=== PATIENT | male | born 1990 | race Native Hawaiian/Other Pacific Islander ===

== ENCOUNTER 2017-05-18 05:00 | Emergency (ER) | payer BC ==
[2017-05-18 05:13] VITALS: RESP 16; TEMP 97.4
--- NOTE | 2017-05-18 06:40 | CT ---
EXAM: CT Head Without Intravenous Contrast CLINICAL HISTORY: 26 years old, male; Injury or trauma; Fall; Initial encounter; Blunt trauma (contusions or hematomas); Additional info: Head injury TECHNIQUE: Axial computed tomography images of the head/brain without intravenous contrast. All CT scans at this facility use one or more dose reduction techniques, viz.: automated exposure control; ma/kV adjustment per patient size (including targeted exams where dose is matched to indication; i.e. head); or iterative reconstruction technique. 321 images are submitted. Coronal and sagittal reformatted images were created and reviewed. Axial reformatted images were created and reviewed. COMPARISON: No relevant prior studies available. FINDINGS: Brain: Unremarkable. No hemorrhage. No significant white matter disease. No edema. Ventricles: Unremarkable. No ventriculomegaly. Bones/joints: Unremarkable. No acute fracture. Soft tissues: Right frontal soft tissue swelling. Sinuses: There is near complete opacification of frontal sinuses. Severe right ethmoid sinus disease. Patchy left ethmoid sinus disease. Scattered patchy sinus disease. Mastoid air cells: Unremarkable. No mastoid effusion. Orbits: The globe and lens are intact. Other findings: Right frontal radiopaque density representing calcification versus debris. IMPRESSION: 1. No evidence of an acute intracranial hemorrhage, midline shift or mass effect is identified. 2. Right frontal soft tissue swelling.
--- NOTE | 2017-05-18 06:57 | ED PDOC ---
HPI: Psych/Substance Abuse Time Seen by Provider: 05/18/17 05:22 Chief Complaint (Nursing): Alcohol Ingestion Chief Complaint (Provider): alcohol intoxication History Per: Patient History/Exam Limitations: intoxication Onset/Duration Of Symptoms: Days (05/18/17) Current Symptoms Are (Timing): Still Present Suicide/Self Injury Attempted (Context): None Modifying Factor(s): Alcohol Additional Complaint(s): 26 year old male was brought into the ED for alcohol intoxication. Reports of drinking and head injury. Denies any other medical condition in ED currently. PMD: Provider TBD Past Medical History Reviewed: Historical Data, Nursing Documentation, Vital Signs Vital Signs: Last Vital Signs Temp 97.4 F L 05/18/17 05:10 Pulse 73 05/18/17 05:10 Resp 16 05/18/17 05:10 BP 130/80 05/18/17 05:10 Pulse Ox 97 05/18/17 05:10 - Medical History PMH: No Chronic Diseases - Surgical History Surgical History: No Surg Hx - Family History Family History: States: No Known Family Hx - Social History Current smoker - smoking cessation education provided: No Alcohol: Occasional Drugs: Denies - Allergies Allergies/Adverse Reactions: Allergies Allergy/AdvReac Type Severity Reaction Status Date / Time No Known Allergies Allergy Verified 05/18/17 05:10 Review of Systems ROS Statement: Except As Marked, All Systems Reviewed And Found Negative Neurological: Positive for: Other (head injury) Psych: Negative for: Suicidal ideation (homicidal ideation) Physical Exam - Reviewed Nursing Documentation Reviewed: Yes Vital Signs Reviewed: Yes - Physical Exam Appears: Positive for: Well, Non-toxic, No Acute Distress Head Exam: Positive for: ATRAUMATIC, NORMAL INSPECTION, NORMOCEPHALIC Skin: Positive for: Normal Color, Warm, Dry Eye Exam: Positive for: EOMI, Normal appearance, PERRL ENT: Positive for: Normal ENT Inspection Neck: Positive for: Normal, Painless ROM, Supple. Negative for: Decreased ROM Cardiovascular/Chest: Positive for: Regular Rate, Rhythm. Negative for: Murmur Respiratory: Positive for: Normal Breath Sounds. Negative for: Decreased Breath Sounds, Accessory Muscle Use, Respiratory Distress Gastrointestinal/Abdominal: Positive for: Normal Exam, Bowel Sounds, Soft. Negative for: Tenderness, Guarding, Rebound Extremity: Positive for: Normal ROM. Negative for: Tenderness, Pedal Edema, Deformity Neurologic/Psych: Positive for: Alert, Mood/Affect (slurred speech), Gait ( unsteady), Other (small swelling and redness on forehead). Negative for: Oriented - ECG O2 Sat by Pulse Oximetry: 97 (RA) Pulse Ox Interpretation: Normal Medical Decision Making Medical Decision Making: Time: 604 Initial Impression: Alcohol intoxication and head injury Initial Plan: --CT w/o contrast --Alcohol serum --Reevaluation Time: 639 EXAM: CT Head Without Intravenous Contrast FINDINGS: Brain: Unremarkable. No hemorrhage. No significant white matter disease. No edema. Ventricles: Unremarkable. No ventriculomegaly. Bones/joints: Unremarkable. No acute fracture. Soft tissues: Right frontal soft tissue swelling. Sinuses: There is near complete opacification of frontal sinuses. Severe right ethmoid sinus disease. Patchy left ethmoid sinus disease. Scattered patchy sinus disease. Mastoid air cells: Unremarkable. No mastoid effusion. Orbits: The globe and lens are intact. Other findings: Right frontal radiopaque density representing calcification versus debris. IMPRESSION: 1. No evidence of an acute intracranial hemorrhage, midline shift or mass effect is identified. 2. Right frontal soft tissue swelling. Scribe Attestation: Documented by Melissa Huitron, acting as a scribe for Marifer Robles MD Provider Scribe Attestation: All medical record entries made by the Scribe were at my direction and personally dictated by me. I have reviewed the chart and agree that the record accurately reflects my personal performance of the history, physical exam, medical decision making, and the department course for this patient. I have also personally directed, reviewed, and agree with the discharge instructions and disposition. Disposition - Clinical Impression Clinical Impression: Alcohol abuse - Patient ED Disposition Is Patient to be Admitted: Transfer of Care Counseled Patient/Family Regarding: Studies Performed, Diagnosis - Disposition Disposition: Transfer of Care Disposition Time: 07:00 Condition: STABLE Instructions: Alcohol Use - When Is Drinking a Problem? Patient Signed Over To: Montse Baker Handoff Comments: pending clinical sobriety
--- NOTE | 2017-05-18 07:46 | ED PDOC ---
- ECG O2 Sat by Pulse Oximetry: 97 (RA) Medical Decision Making Medical Decision Making: Time: 0700 --Patient endorsed to provider by Dr. Marifer Robles. Pending clinical sobriety. Scribe Attestation: Documented by Mercedes Jackman, acting as a scribe for Montse Baker MD. Provider Scribe Attestation: All medical record entries made by the Scribe were at my direction and personally dictated by me. I have reviewed the chart and agree that the record accurately reflects my personal performance of the history, physical exam, medical decision making, and the department course for this patient. I have also personally directed, reviewed, and agree with the discharge instructions and disposition. 10.30a patient is awake now. gait steady. no complaints. Will d/c Disposition Doctor Will See Patient In The: Office Counseled Patient/Family Regarding: Diagnosis, Need For Followup - Clinical Impression Clinical Impression: Alcohol abuse - POA Present On Arrival: Falls Or Trauma - Disposition Disposition: Routine/Home Disposition Time: 10:40 Condition: STABLE Instructions: Alcohol Use - When Is Drinking a Problem? Forms: [employer] (Czech)
[2017-05-18 10:30] VITALS: BP 125/80; PULSE 75
[2017-05-18 10:41] VITALS: O2SAT 97
== END 2017-05-18 11:08 | disposition home or self-care (01) ==
LOC: H.ER 05:00
DX: F10.129 Alcohol abuse with intoxication, unspecified (principal); S09.90XA Unspecified injury of head, initial encounter; W19.XXXA Unspecified fall, initial encounter; Y92.89 Other specified places as the place of occurrence of the external cause
CPT/HCPCS: 70450; 99282; G0480